=== PATIENT | female | born 1995 | race Caucasian/White ===

== ENCOUNTER 2018-11-08 18:28 | Emergency (ER) | payer BC ==
[~2018-11-08] VITALS: Ht 175.3 cm; Wt 115.7 kg
[2018-11-08] MEDS ORDERED: BACTRIM DS TAB1 EACH PO (19:33)
[2018-11-08 19:51] VITALS: BP 114/53
== END 2018-11-08 19:51 | disposition home or self-care (01) ==
LOC: M.ERS 18:28
DX: S61.215A Laceration without foreign body of left ring finger without damage to nail, initial encounter (principal); K21.9 Gastro-esophageal reflux disease without esophagitis; W26.0XXA Contact with knife, initial encounter; Y93.89 Activity, other specified; Y92.89 Other specified places as the place of occurrence of the external cause; Y99.8 Other external cause status